=== PATIENT | male | born 1955 | race African-American/Black ===

== ENCOUNTER 2016-10-27 16:47 | Emergency (ER) | payer OTHER ==
[~2016-10-27 16:47] MED LIST: ALENDRONATE SOD40 MG PO; ESCITALOPRAM5 MG PO; HARVONI1 TAB PO; LIDODERM 5% PAT1 PAT TOP; LYRICA100 MG PO; MELOXICAM7.5 MG PO; MIRTAZAPINE15 MG PO; NALTREXONE50 MG PO; NEURONTIN300 MG PO; NEXIUM40 MG PO; PRAZOSIN HYDROCH2 MG PO; PREVPAC PO; ZOFRAN 4 MG TABL4 MG PO
[2016-10-27 16:53] VITALS: BP 144/78
--- NOTE | 2016-10-27 17:16 | ED UPPER/LOWER EXTREMITY COMPL ---
History of Present Illness General Chief Complaint: Laceration Procedure Stated Complaint: CUT LEFT ARM ON FENCE Source: patient, old records Exam Limitations: no limitations Vital Signs & Intake/Output Vital Signs & Intake/Output Vital Signs Date Time Temp Pulse Resp B/P B/P Pulse O2 O2 Flow FiO2 Mean Ox Delivery Rate 10/27 1744 99 Room Air 10/27 1653 98.8 98 15 144/78 98 Room Air Room Air Allergies Coded Allergies: No Known Allergies (10/27/16) Reconcile Medications Alendronate Sodium 40 MG TABLET 1 TAB PO QAM UNKNOWN (Reported) Escitalopram Oxalate 5 MG TABLET 1 TAB PO QAM MENTAL HEALTH (Reported) Esomeprazole Magnesium (Nexium) 40 MG CAPSULE.DR 1 CAP PO DAILY GI (Reported) Gabapentin (Neurontin) 300 MG CAP 2 CAP PO TID UNKNOWN (Reported) LANSOPRAZOLE/AMOXICILN/CLARITH (Prevpac Patient Pack) 30 MG-500 MG-500 MG COMBO..PKG 1 PAC PO DAILY AD ANTIBIOTIC (Reported) Ledipasvir/Sofosbuvir (Harvoni 90-400 MG Tablet) 90 MG/400 MG TAB 1 TAB PO DAILY Antiviral for Hepatitis C (Reported) You must complete the full medication course for treatment to be effective. Lidocaine HCl (Lidoderm Patch) 5 % PAT 1 PAT TOP DAILY PAIN (Reported) may wear up to 12 hours Meloxicam 7.5 MG TABLET 1 TAB PO PRN PAIN (Reported) Mirtazapine 15 MG TABLET 0.5-1 TAB PO QPM SLEEP (Reported) NALTREXONE HCL (Naltrexone HCl) 50 MG TABLET 1 TAB PO DAILY UNKNOWN (Reported ) Ondansetron (Zofran 4 MG Tablet) 4 MG TAB 1 TAB PO TID NAUSEA (Reported) Prazosin Hydrochloride 2 MG CAP 1 CAP PO QPM (Reported) Pregabalin (Lyrica) 100 MG CAPSULE 1 CAP PO BID UNKNOWN (Reported) Triage Note: PT TO ED FOR C/C OF LAC TO L FOREARM FROM CONTINUOUS IMPROVEMENT COORDINATOR. LAC APPROX 2 INCHES LONG, SOME SOFT TISSUE NOTED, BLEEDING CONTROLLED. DRESSING APPLIED IN TRIAGE. Triage Nurses Notes Reviewed? yes Onset: Abrupt Duration: hour(s): (1) Timing: recent history Severity: mild, moderate Severity Numbers: 5 Pain/Injury Location: Left: Forearm. Method of Injury: direct blow No Modifying Factors: none Associated Symptoms: none HPI: 61-year-old male presents to ER for evaluation status post sustaining laceration to his left forearm just prior to arrival. He was mowing the lawn hit his arm against a metal fence. His last tetanus is unknown. He is now complaining of mild aching pain over the left forearm. Is right-hand dominant. No modifying factors or associated symptoms otherwise. (SANA AUGUSTIN) Past History Travel History Traveled to [place] past 21 day No Medical History Any Pertinent Medical History? 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 No (SANA AUGUSTIN) Review of Systems Review of Systems Constitutional: Reports: see HPI. All Other Systems: Reviewed and Negative Comments Review of systems: See HPI, All other systems negative. Constitutional, no chills no fever, no malaise HEENT: no sore throat no congestion Cardiovascular: No chest pain , no palpitation Skin: no rashes, no change in skin Respiratory: No dyspnea no cough no sputum GI: No nausea no vomiting, no diarrhea Muscle skeletal: No joint pain, no joint swelling, no back pain, no neck pain, Neurologic: No numbness no headache Psych: No stress Heme/endocrine: No bruising Immunology: No lymphadenopathy (SANA AUGUSTIN) Physical Exam Physical Exam General Appearance: well developed/nourished, no apparent distress, alert, awake Comments: Well-developed well-nourished patient in no apparent distress. HEENT: Atraumatic, extraocular motion intact Neck: Supple, FROM Back: FROM Cardiovascular: Regular rate and rhythms no murmurs Respiratory: No respiratory distress. Patient speaking in full complete sentences. Breath sounds clear to auscultation bilaterally: NO W/R/R Extremities: There is a 2 cm laceration dorsal distal left forearm no visualized foreign body or palpated foreign body no deep tendon injury full range of motion Neuro: awake, alert, and oriented to person, place and time. There were no obvious focal neurologic abnormalities. Skin: Warm & dry;No appreciable rash on exposed skin Psych: Mood affect normal, normal memory normal judgment. (SANA AUGUSTIN) Progress Differential Diagnosis: contusion, sprain, tendon injury, LACEARTION Plan of Care: After verbal consent was obtained the wound was thoroughly irrigated with normal saline Betadine peroxide. SUTURES X 4 3-0 applied by me discussed with the patient return precautions signs of infection the possibility for Vicodin to my examination still exist. He will return anytime sooner with any concerns (SANA AUGUSTIN) Departure Departure Disposition: HOME OR SELF CARE Condition: Stable Clinical Impression Primary Impression: Forearm laceration Referrals: PATIENT HAS NO PRIMARY CARE DR (PCP/Family) Additional Instructions: Keep area clean and covered as discussed, bacitracin daily. Return to ER in 7- 10 days for suture removal. Please understand that foreign bodies such as glass or wood may not be visible to the naked eye or on plain x-rays. If the wound becomes red, swollen, increasingly more painful or if there is any drainage from the wound, please have it reevaluated by a physician for the possibility of a retained foreign body. Departure Forms: Customer Survey General Discharge Information (SANA AUGUSTIN) PA/OIL FIELD EQUIPMENT MECHANIC Co-Sign Statement Statement: ED Attending supervision documentation- I saw and evaluated the patient. I have also reviewed all the pertinent lab results and diagnostic results. I agree with the findings and the plan of care as documented in the PA's/OIL FIELD EQUIPMENT MECHANIC's documentation. x I have reviewed the ED Record and agree with the PA's/OIL FIELD EQUIPMENT MECHANIC's documentation. [] Additions or exceptions (if any) to the PAs/OIL FIELD EQUIPMENT MECHANIC's note and plan are summarized below: [] (JOSIE ZHAO,MARELY) Procedures Laceration/Wound Repair Laceration/Wound Repair: Wound Location: upper extremity Wound's Depth, Shape: linear, superficial Wound Length (cm): 2 Wound Explored: clean, no foreign body removed, irrigated extensively Irrigated w/ Saline (ccs): 150 Betadine Prep? Yes Anesthesia: 1% lidocaine Volume Anesthetic (ccs): 6 Wound Repaired With: sutures Suture Size/Type: 3:0 Number of Sutures: 4 Layer Closure? No Sterile Dressing Applied: Yes Date of Last Tetanus: 10/27/16 Tetanus Status: up to date (SANA AUGUSTIN)
== END 2016-10-27 17:46 ==
LOC: ERH 16:47
DX: S51.812A Laceration without foreign body of left forearm, initial encounter (principal); W45.8XXA Other foreign body or object entering through skin, initial encounter; Y93.H9 Activity, other involving exterior property and land maintenance, building and construction; Y92.009 Unspecified place in unspecified non-institutional (private) residence as the place of occurrence of the external cause
CPT/HCPCS: 90471; 90714

== ENCOUNTER 2016-11-03 13:11 | Emergency (ER) | payer OTHER ==
[~2016-11-03] VITALS: Ht 167.6 cm; Wt 59.0 kg
--- NOTE | 2016-11-03 13:14 | ED ANIMAL BITE/WOUND CHECK ---
History of Present Illness General Chief Complaint: Suture Removal/Wound Recheck Stated Complaint: SUTURE REMOVAL Source: patient, old records Exam Limitations: no limitations Vital Signs & Intake/Output Vital Signs & Intake/Output Vital Signs Date Time Temp Pulse Resp B/P B/P Pulse O2 O2 Flow FiO2 Mean Ox Delivery Rate 11/03 1317 98.7 108 18 132/75 98 Room Air Allergies Coded Allergies: No Known Allergies (10/27/16) Reconcile Medications Alendronate Sodium 40 MG TABLET 1 TAB PO QAM UNKNOWN (Reported) Escitalopram Oxalate 5 MG TABLET 1 TAB PO QAM MENTAL HEALTH (Reported) Esomeprazole Magnesium (Nexium) 40 MG CAPSULE.DR 1 CAP PO DAILY GI (Reported) Gabapentin (Neurontin) 300 MG CAP 2 CAP PO TID UNKNOWN (Reported) LANSOPRAZOLE/AMOXICILN/CLARITH (Prevpac Patient Pack) 30 MG-500 MG-500 MG COMBO..PKG 1 PAC PO DAILY AD ANTIBIOTIC (Reported) Ledipasvir/Sofosbuvir (Harvoni 90-400 MG Tablet) 90 MG/400 MG TAB 1 TAB PO DAILY Antiviral for Hepatitis C (Reported) You must complete the full medication course for treatment to be effective. Lidocaine HCl (Lidoderm Patch) 5 % PAT 1 PAT TOP DAILY PAIN (Reported) may wear up to 12 hours Meloxicam 7.5 MG TABLET 1 TAB PO PRN PAIN (Reported) Mirtazapine 15 MG TABLET 0.5-1 TAB PO QPM SLEEP (Reported) NALTREXONE HCL (Naltrexone HCl) 50 MG TABLET 1 TAB PO DAILY UNKNOWN (Reported ) Ondansetron (Zofran 4 MG Tablet) 4 MG TAB 1 TAB PO TID NAUSEA (Reported) Prazosin Hydrochloride 2 MG CAP 1 CAP PO QPM (Reported) Pregabalin (Lyrica) 100 MG CAPSULE 1 CAP PO BID UNKNOWN (Reported) Triage Nurses Notes Reviewed? yes Onset: Abrupt Duration: week(s): (1), better Timing: remote history Injury Environment: neighbor's Is Injury an Animal Bite? No Severity: mild Severity Numbers: 1 No Modifying Factors: none Associated Symptoms: denies HPI: 61-year-old male presents for wound check suture removal after sustaining a laceration one week ago requiring 4 sutures. He is otherwise without any complaints no pain redness warmth swelling fevers chills no discharge he is otherwise without any complaints. (SANA AUGUSTIN) Past History Travel History Traveled to [place] past 21 day No Medical History Any Pertinent Medical History? 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 No (SANA AUGUSTIN) Review of Systems Review of Systems Constitutional: Reports: no symptoms. All Other Systems: Reviewed and Negative Comments Review of systems: See HPI, All other systems negative. Constitutional, no chills no fever, no malaise HEENT: no sore throat no congestion, Cardiovascular: No chest pain Skin: no rashes, no change in skin Respiratory: No dyspnea no cough GI: No nausea no vomiting, no diarrhe Muscle skeletal: No joint pain, no joint swelling, no back pain, no neck pain, Neurologic: No numbness no headache Heme/endocrine: No bruising Immunology: No lymphadenopathy (SANA AUGUSTIN) Physical Exam Physical Exam General Appearance: well developed/nourished, no apparent distress, alert, awake Comments: Well-developed well-nourished patient in no apparent distress. HEENT: Atraumatic, extraocular motion intact Neck: Supple, FROM Back: FROM Respiratory: No respiratory distress. Patient speaking in full complete sentences. Breath sounds clear to auscultation bilaterally: NO W/R/R Extremities: Sutures 4 and placed to the left dorsal forearm, no induration erythema swelling nontender full range of motion Neuro: awake, alert, and oriented to person, place and time. There were no obvious focal neurologic abnormalities. Skin: Warm & dry;No appreciable rash on exposed skin Psych: Mood affect normal, normal memory normal judgment. (SANA AUGUSTIN) Progress Differential Diagnosis: abscess, cellulitis Plan of Care: Sutures 4 removed by me there is no wound dehiscence. Patient tolerate procedure well discussed with him return precautions he feels comfortable plan (SANA AUGUSTIN) Departure Departure Time of Disposition: 1315 Disposition: HOME OR SELF CARE Condition: Stable Clinical Impression Primary Impression: Visit for suture removal Referrals: PATIENT HAS NO PRIMARY CARE DR (PCP/Family) Additional Instructions: return to the er or follow up with your pmd with any concerns or signs of infection. Departure Forms: Customer Survey General Discharge Information (GIULIANA MCCULLOUGH,SANA) PA/CUSTOMER CARE VOICE CONSULTANT Co-Sign Statement Statement: ED Attending supervision documentation- [] I saw and evaluated the patient. I have also reviewed all the pertinent lab results and diagnostic results. I agree with the findings and the plan of care as documented in the PA's/CUSTOMER CARE VOICE CONSULTANT's documentation. [X] I have reviewed the ED Record and agree with the PA's/CUSTOMER CARE VOICE CONSULTANT's documentation. [] Additions or exceptions (if any) to the PAs/CUSTOMER CARE VOICE CONSULTANT's note and plan are summarized below: [] (LUIS FELIPE ZHAO,MARYANNE Villa)
[2016-11-03 13:17] VITALS: BP 132/75
== END 2016-11-03 13:20 ==
LOC: ERH 13:11
DX: S51.812A Laceration without foreign body of left forearm, initial encounter (principal); X58.XXXA Exposure to other specified factors, initial encounter; Y92.9 Unspecified place or not applicable; Y93.9 Activity, unspecified
CPT/HCPCS: 99281